=== PATIENT | male | born 1975 | race Two or more races ===

== ENCOUNTER 2018-09-21 11:57 | Emergency (ER) | payer MEDICAID ==
[~2018-09-21] VITALS: Ht 172.7 cm; Wt 81.6 kg
[~2018-09-21 11:57] MED LIST: CHOL1TAB42 PO; LORA-352 PO; OMEP20CA74 PO
[2018-09-21 12:04] VITALS: BP 146/82
[2018-09-21] MEDS ORDERED: CARISOPRODOL 350 MG TAB PO ONE (12:30)
[2018-09-21] MEDS ORDERED: KETOROLAC TROMETH 60MG/2ML VIAL IM ONE (12:30)
== END 2018-09-21 14:36 | disposition home or self-care (01) ==
LOC: EDBD 11:57 → ER 11:59
DX: S33.5XXA Sprain of ligaments of lumbar spine, initial encounter (principal); M79.652 Pain in left thigh; Z88.0 Allergy status to penicillin; Z79.899 Other long term (current) drug therapy; V49.40XA Driver injured in collision with unspecified motor vehicles in traffic accident, initial encounter; Y93.89 Activity, other specified; Y99.8 Other external cause status; Y92.89 Other specified places as the place of occurrence of the external cause
CPT/HCPCS: 72110; 96372; 99283; J1885

== ENCOUNTER 2020-04-10 18:27 | Inpatient (IN) | payer OTHER ==
[~2020-04-10] VITALS: Ht 175.3 cm; Wt 76.6 kg
[~2020-04-10 18:27] MED LIST changes: -CHOL1TAB42 PO; +LEVO-28 PO; -LORA-352 PO; -OMEP20CA74 PO
[2020-04-10] MEDS ORDERED: DOXYCYCLINE 100MG/250ML 250 ML IV ONE (20:30)
[2020-04-10] MEDS ORDERED: ASCORBIC ACID 500 MG TAB PO ONE (20:30)
[2020-04-10] MEDS ORDERED: ZINC SULFATE 220mg CAP or TAB PO ONE (20:30)
[2020-04-10] MEDS ORDERED: DOXYCYCLINE 100 MG TAB/CAP PO ONE (20:45)
[2020-04-10 21:25] LABS: Basophils # (auto) 0 10 ^3/uL (0-0.2); Basophils % (auto) 0.5 % (0.0-2.0); Eosinophils # (auto) 0.1 10 ^3/uL (0-0.8); Eosinophils % (auto) 1.3 % (0.0-7.0); Hematocrit 42.1 % (41.0-53.0); Hemoglobin 14.2 g/dL (13.5-17.5); Lymphocytes # (auto) 2.7 10 ^3/uL (0.4-5.4); Mean Corpuscular Hemoglobin 30.5 pg (28.0-32.0); Mean Corpuscular Hgb Conc. 33.6 g/dL (32.0-36.0); Mean Corpuscular Volume 90.8 fL (80.0-100.0); Monocytes # (auto) 0.9 10 ^3/uL (0-1.3); Monocytes % (auto) 10.6 % (0.0-12.0); Neutrophils # (auto) 4.3 10 ^3/uL (1.6-8.6); Neutrophils % (auto) 53.6 % (37.0-80.0); Nucleated Red Blood Cells % 0.2 %; Platelet Count (auto) 385 10^3/uL (140-450); Red Blood Cells 4.64 10^6/uL (4.5-5.90); Red Cell Distribution Width 12.3 % (11.8-14.3); White Blood Cell 8.1 10^3/uL (4.4-10.8)
[2020-04-10 21:41] LABS: Alcohol, Urine < 3.0 mg/dL (0-10); Amphetamine Screen, Urine NEGATIVE (NEGATIVE); Barbiturate Scree,Urine NEGATIVE (NEGATIVE); Benzodiazephine Screen, Urine NEGATIVE (NEGATIVE); Cannabinoid Screen, Urine NEGATIVE (NEGATIVE); Cocaine Screen, Urine NEGATIVE (NEGATIVE); Opiate Scree,Urine NEGATIVE (NEGATIVE); Phencyclidine Screen, Urine NEGATIVE (NEGATIVE)
[2020-04-10 21:42] LABS: Albumin 3.3 g/dL (3.4-5.0); Anion Gap 3 (5-15); Blood Urea Nitrogen 25 mg/dL (7-18); Calcium 8.3 mg/dL (8.5-10.1); Carbon Dioxide 32 mmol/L (21-32); Chloride 103 mmol/L (98-107); Glucose 96 mg/dL (74-106); Potassium 4.2 mmol/L (3.5-5.1); Sodium 138 mmol/L (136-145)
[2020-04-10 21:55] LABS: Alanine Aminotransferase 55 U/L (16-61); Alkaline Phosphatase 59 U/L (45-117); Aspartate Aminotransferase 25 U/L (15-37); BUN/Creatinine Ratio 23.4; Bilirubin, Total 0.2 mg/dL (0.2-1.0); CRP High Sensitivity 0.11 mg/dL (< 0.3); GFR African American 96 mL/min; GFR Non-African American 79 mL/min; Lactate Dehydrogenase 173 U/L (87-241)
[2020-04-10] MEDS ORDERED: SODIUM CHLORIDE 0.9% 1,000 ML IV SCH ×2 (22:19→22:32)
[2020-04-10] MEDS ORDERED: ACETAMINOPHEN 500 MG TAB PO PRN (22:30)
[2020-04-10] MEDS ORDERED: MORPHINE SULF INJ 2 MG/ML SYRINGE 1ML IV PRN (22:45)
[2020-04-10] MEDS ORDERED: ACETAMINOPHEN 325 MG TAB PO PRN ×2 (22:45)
[2020-04-10] MEDS ORDERED: HYDROcodone-ACET 5/325MG TAB PO PRN (22:45)
[2020-04-10] MEDS ORDERED: ONDANSETRON HCL 4 MG/2 ML VIAL IV PRN (22:45)
[2020-04-10] MEDS ORDERED: DOCUSATE SOD 100 MG CAP PO PRN (22:45)
[2020-04-10] MEDS ORDERED: NITROGLYCERIN 0.4 MG SL TAB SL PRN (22:45)
[2020-04-11] VITALS (7 sets, daily range): BP systolic 99–120; BP diastolic 65–75
[2020-04-11] MEDS ORDERED: ALBUTEROL SULF HFA 90MCG INH 200DOSE IN SCH (06:00)
[2020-04-11 08:23] LABS: Basophils # (auto) 0 10 ^3/uL (0-0.2); Basophils % (auto) 0.3 % (0.0-2.0); Eosinophils # (auto) 0.1 10 ^3/uL (0-0.8); Eosinophils % (auto) 1.3 % (0.0-7.0); Hematocrit 41.6 % (41.0-53.0); Hemoglobin 14.2 g/dL (13.5-17.5); Lymphocytes # (auto) 2.3 10 ^3/uL (0.4-5.4); Lymphocytes % (auto) 37.4 % (10.0-50.0); Mean Corpuscular Hemoglobin 30.9 pg (28.0-32.0); Mean Corpuscular Hgb Conc. 34.1 g/dL (32.0-36.0); Mean Corpuscular Volume 90.7 fL (80.0-100.0); Monocytes # (auto) 0.7 10 ^3/uL (0-1.3); Monocytes % (auto) 11.2 % (0.0-12.0); Neutrophils % (auto) 49.8 % (37.0-80.0); Nucleated Red Blood Cells % 0.1 %; Platelet Count (auto) 343 10^3/uL (140-450); Red Blood Cells 4.59 10^6/uL (4.5-5.90); Red Cell Distribution Width 12.5 % (11.8-14.3)
[2020-04-11 08:36] LABS: Potassium 3.8 mmol/L (3.5-5.1)
[2020-04-11 08:46] LABS: Albumin 3.2 g/dL (3.4-5.0); BUN/Creatinine Ratio 30.5; Bilirubin, Total 0.4 mg/dL (0.2-1.0); Calcium 8.1 mg/dL (8.5-10.1); Magnesium 2.6 mg/dL (1.6-2.6); Total Protein 6.7 g/dL (6.4-8.2)
[2020-04-11] MEDS ORDERED: ZINC SULFATE 220mg CAP or TAB PO SCH (10:00)
[2020-04-11] MEDS ORDERED: CHOLECALCIFEROL (VITD3) 1,000IU=25mCg TAB PO SCH (10:00)
[2020-04-11] MEDS ORDERED: DOXYCYCLINE 100 MG TAB/CAP PO SCH (10:00)
[2020-04-11] MEDS ORDERED: ASCORBIC ACID 1,000 MG TAB PO SCH (10:00)
[2020-04-11] MEDS ORDERED: ENOXAPARIN SOD 40 MG/0.4 ML SYRINGE SC SCH (10:00)
[2020-04-11] MEDS ORDERED: DOX100T PO (15:48)
[2020-04-11] MEDS ORDERED: ASCO500T11 PO (15:48)
== END 2020-04-11 18:50 | disposition home or self-care (01) | DRG 139 ==
LOC: ER 18:28 → OVERFLOW 18:29 → EAST 18:30
PROVIDERS: ADMIT Hospitalist; ATTEND Hospitalist
DX: J18.9 Pneumonia, unspecified organism (principal); E44.1 Mild protein-calorie malnutrition; Z20.828 Contact with and (suspected) exposure to other viral communicable diseases; E86.0 Dehydration; F12.90 Cannabis use, unspecified, uncomplicated; F15.10 Other stimulant abuse, uncomplicated; Z88.0 Allergy status to penicillin; Z86.19 Personal history of other infectious and parasitic diseases; Z68.24 Body mass index [BMI] 24.0-24.9, adult
CPT/HCPCS: 36415; 71045; 80053; 80307; 82728; 83605; 83615; 83735; 84484; 85025; 85379; 86141; 87040; 93005; 94640; G0378

== ENCOUNTER 2021-04-20 16:39 | Emergency (ER) | payer OTHER ==
[~2021-04-20] VITALS: Ht 172.7 cm; Wt 99.8 kg
[~2021-04-20 16:39] MED LIST changes: +ASCO500T11 PO; +DOX100T PO; -LEVO-28 PO
[2021-04-20 17:20] VITALS: BP 131/78
== END 2021-04-20 17:35 | disposition home or self-care (01) ==
LOC: ER 16:39
DX: S60.561A Insect bite (nonvenomous) of right hand, initial encounter (principal); S80.862A Insect bite (nonvenomous), left lower leg, initial encounter; S80.861A Insect bite (nonvenomous), right lower leg, initial encounter; L08.9 Local infection of the skin and subcutaneous tissue, unspecified; G89.29 Other chronic pain; M79.672 Pain in left foot; Z88.0 Allergy status to penicillin; Z79.2 Long term (current) use of antibiotics; Z79.899 Other long term (current) drug therapy; W57.XXXA Bitten or stung by nonvenomous insect and other nonvenomous arthropods, initial encounter; Y93.89 Activity, other specified; Y92.89 Other specified places as the place of occurrence of the external cause; Y99.8 Other external cause status

== ENCOUNTER 2022-06-03 12:16 | Emergency (ER) | payer OTHER ==
[~2022-06-03] VITALS: Ht 172.7 cm; Wt 95.4 kg
[2022-06-03 15:13] VITALS: BP 105/79
[2022-06-03] MEDS ORDERED: HYDROcodone-ACET 10/325MG TAB PO ONE (15:30)
[2022-06-03] MEDS ORDERED: HYDR-4798 PO (15:46)
== END 2022-06-03 15:53 | disposition home or self-care (01) ==
LOC: ER 12:16
DX: S22.41XA Multiple fractures of ribs, right side, initial encounter for closed fracture (principal); Z79.2 Long term (current) use of antibiotics; Z79.899 Other long term (current) drug therapy; Z88.0 Allergy status to penicillin; V19.9XXA Pedal cyclist (driver) (passenger) injured in unspecified traffic accident, initial encounter; Y93.89 Activity, other specified; Y92.89 Other specified places as the place of occurrence of the external cause; Y99.8 Other external cause status
CPT/HCPCS: 71101; 93005

== ENCOUNTER 2022-10-04 11:59 | Emergency (ER) | payer OTHER ==
[~2022-10-04] VITALS: Ht 175.3 cm; Wt 83.9 kg
[~2022-10-04 11:59] MED LIST changes: +HYDR-4798 PO
[2022-10-04 14:06] VITALS: BP 135/104
== END 2022-10-04 20:48 | disposition left against medical advice (07) ==
LOC: ER 11:59
DX: M25.562 Pain in left knee (principal); Z53.21 Procedure and treatment not carried out due to patient leaving prior to being seen by health care provider; W19.XXXA Unspecified fall, initial encounter; Y93.89 Activity, other specified; Y92.89 Other specified places as the place of occurrence of the external cause; Y99.8 Other external cause status